=== PATIENT | male | born 1965 | race African-American/Black ===

== ENCOUNTER 2019-12-17 07:37 | Outpatient (CLI) | payer OTHER ==
[2019-12-17 14:20] LABS: #Basophils 0.1 thou/uL (0.0-0.2); #Eosinphils 0.2 thou/uL (0.0-0.7); #Lymphocytes 2.3 thou/uL (1.20-3.40); #Monocytes 0.6 thou/uL (0.11-0.59); #Neutrophils 3.8 thou/uL (1.40-6.50); %Basophils 0.9 % (0.0-1.0); %Eosinophils 3.1 % (0.0-10.0); %Lymphocytes 32.7 % (21.0-51.0); %Monocytes 9.1 % (0.0-10.0); %Neutrophils 54.1 % (42.0-75.0); Hemoglobin 18.1 g/dL (14.0-18.0); Mean Corpuscular HGB CONC 34.2 g/dL (32.0-36.0); Mean Corpuscular Hemoglobin 33.1 pg (27.0-31.0); Mean Corpuscular Volume 96.8 fL (78.0-98.0); Mean Platelet Volume 7.8 fL (7.4-10.4); Platelet Count 212 thou/uL (130-400); RBC Distribution Width 11.5 % (11.5-14.5); Red Blood Cell (RBC) Count 5.47 mill/uL (4.70-6.10)
[2019-12-17 14:28] LABS: PTT 31.9 sec (22.9-36.1); Prothrombin Time 13.4 sec (12.0-14.7)
[2019-12-17 15:12] LABS: Anion Gap 15 mmol/L (10-20); BUN (Urea Nitrogen) 18 mg/dL (8.4-25.7); Calc. Creatinine Clearance 0 mL/min (70-130); Calcium 9.5 mg/dL (7.8-10.44); Carbon Dioxide 22 mmol/L (22-29); Chloride 106 mmol/L (98-107); Estimated GFR-MDRD 72; Glucose 72 mg/dL (70-105); Potassium 4.5 mmol/L (3.5-5.1); Sodium 138 mmol/L (136-145)
--- NOTE | 2019-12-18 17:29 | EKG ---
Test Reason : PREOP Blood Pressure : / mmHG Vent. Rate : 078 BPM Atrial Rate : 535 BPM P-R Int : 000 ms QRS Dur : 090 ms QT Int : 362 ms P-R-T Axes : 000 006 031 degrees QTc Int : 412 ms Atrial fibrillation Nonspecific T wave abnormality Abnormal ECG No previous ECGs available Confirmed by DR. Brianda MAS ([id number]) on 12/18/2019 5:29:00 PM Referred By: Heidi CRAWFORD Confirmed By:DR. Brianda MAS
[2019-12-19 12:45] LABS: SARS-CoV-2 MS2 Positive; SARS-CoV-2 N Gene Negative; SARS-CoV-2 S Gene Negative; SARS-CoV-2 by NAA Not Detected (NotDetected); SARS-CoV-2 orf1ab Negative
== END 2019-12-17 07:38 | disposition home or self-care (01) ==
LOC: LABBT 07:37
PROVIDERS: ATTEND Internal Medicine Cardiovascular Disease
DX: Z01.818 Encounter for other preprocedural examination (principal); Z20.828 Contact with and (suspected) exposure to other viral communicable diseases; I48.91 Unspecified atrial fibrillation
CPT/HCPCS: 80048; 85025; 85610; 85730; 87635; 93005; 93010; U0003

== ENCOUNTER 2019-12-20 06:04 | Day surgery (SDC) | payer OTHER ==
[2019-12-19 11:47] VITALS: BMI 40.4
[2019-12-20] MEDS ORDERED: PROPOFOL 20 ML ONE (07:47)
--- NOTE | 2019-12-20 13:51 | CCLSPC ---
PRE-PROCEDURE DIAGNOSIS: Atrial fibrillation, symptomatic. PROCEDURE PERFORMED: Direct current synchronized cardioversion. SUMMARY: Mr. Jordan is a pleasant 54-year-old gentleman, who comes to the outpatient area for planned cardioversion. See CHRIS forms for details. After CHRIS cleared him from any thrombus, one single synchronized shock was delivered at 150 joules successfully converting him from atrial fibrillation into sinus rhythm in the 50s, eventually in the 70s. The patient tolerated the procedure well. RECOMMENDATIONS: 1. Continue flecainide, metoprolol, and Eliquis for stroke prophylaxis. 2. Follow up in the office in 4 weeks. Job ID: [id number]
--- NOTE | 2019-12-20 13:52 | CCLSPC ---
PROCEDURE: Transesophageal echo. The Anesthesiology Department provided with sedation for the patient. Please see their notes for details. After adequate sedation was achieved, transesophageal probe was inserted into the mouth and into the esophagus. Multiplanar views were then obtained. Left ventricle is normal in size with normal wall thickness. Systolic function is normal, estimated at 50% to 55%. Left atrium is dilated. Left atrial appendage is widely patent with normal velocities with no evidence of masses or thrombus. Right atrium is dilated. No evidence of mass or thrombus. Interatrial septum appears to be intact by color Doppler. Right ventricle is normal in size with normal RV systolic function. Aortic valve is structurally normal. No stenosis or regurgitation. Mitral valve is structurally normal. There is mild MR. No stenosis. Tricuspid valve is structurally normal. There is mild TR. Pulmonary valve is structurally normal. No stenosis or regurgitation. CONCLUSIONS: 1. LVEF at 50% to 55%. 2. Biatrial enlargement. 3. Mild MR. 4. Mild TR. 5. No evidence of mass or thrombus of the left atrial appendage or in any of the cardiac chambers. Job ID: [id number]
== END 2019-12-20 08:50 | disposition home or self-care (01) ==
LOC: CCL 06:04
PROVIDERS: ATTEND Internal Medicine Cardiovascular Disease
PROC: B24BZZ4 Ultrasonography of Heart with Aorta, Transesophageal (ICD-10-PCS; principal; 2019-12-20)
PROC: 5A2204Z Restoration of Cardiac Rhythm, Single (ICD-10-PCS; principal; 2019-12-20)
DX: I48.0 Paroxysmal atrial fibrillation (principal); I08.1 Rheumatic disorders of both mitral and tricuspid valves; J45.909 Unspecified asthma, uncomplicated; F17.210 Nicotine dependence, cigarettes, uncomplicated; E66.01 Morbid (severe) obesity due to excess calories; Z68.41 Body mass index [BMI] 40.0-44.9, adult; Z79.01 Long term (current) use of anticoagulants; Z79.899 Other long term (current) drug therapy; Z91.013 Allergy to seafood
CPT/HCPCS: 92960; 93005; 93010; 93312; J2704